=== PATIENT | female | born 1940 | race Caucasian/White ===

== ENCOUNTER → 2016-09-07 | Outpatient (CLI) | payer OTHER ==
[~2016-09-07] MED LIST: ALENDRONATE SOD70 MG PO; ASPIR 8181 MG PO; ATIVAN0.5 MG PO; ATORVASTATIN CA40 MG PO; CENTRUM SILVER1 EAC4 PO; ENALAPRIL MALEA20 MG PO; FISH OIL 1,001000 M2 PO; PRILOSEC 20 MG20 MG PO; TOPROL XL25 MG PO; VITAMIN D31000 UNI2 PO
== END ==
LOC: RAD 08:36
DX: N28.1 Cyst of kidney, acquired (principal); R07.81 Pleurodynia; R07.9 Chest pain, unspecified; R10.12 Left upper quadrant pain

== ENCOUNTER → 2017-05-22 | Outpatient (CLI) | payer OTHER | LOC: RAD 01:11 | DX: Z12.31 Encounter for screening mammogram for malignant neoplasm of breast (principal) ==

== ENCOUNTER → 2017-05-30 | Outpatient (CLI) | payer OTHER | LOC: RAD 01:10 | DX: R92.8 Other abnormal and inconclusive findings on diagnostic imaging of breast (principal) ==

== ENCOUNTER → 2018-05-29 | Outpatient (CLI) | payer OTHER | LOC: RAD 01:26 | DX: Z12.31 Encounter for screening mammogram for malignant neoplasm of breast (principal) ==